=== PATIENT | male | born 2000 | race Caucasian/White ===

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

== ENCOUNTER → 2023-12-29 | Outpatient (CLI) | payer BC | LOC: M WUC 12:23 | PROVIDERS: ATTEND Student in an Organized Health Care Education/Training Program | DX: M25.521 Pain in right elbow (principal) ==

== ENCOUNTER → 2024-12-08 | Outpatient (CLI) | payer BC | LOC: M WUC 11:56 | PROVIDERS: ATTEND Student in an Organized Health Care Education/Training Program | DX: M25.572 Pain in left ankle and joints of left foot (principal) ==